=== PATIENT | male | born 1955 | race African-American/Black ===

== ENCOUNTER 2024-03-20 12:40 | Emergency (ER) | payer OTHER ==
[~2024-03-20] VITALS: Ht 170.2 cm; Wt 75.0 kg
[2024-03-20 12:42] VITALS: O2SAT 99
[2024-03-20 13:04] LABS: BASOPHILS % 0.4 % (0.0-2.0); DIFFERENTIAL COMMENT 0; EOSINOPHILS % 0.1 % (0.0-5.0); HEMATOCRIT. 46.7 % (42.0-52.0); LYMPHOCYTES % 13.7 % (20.0-50.0); MEAN CORPUSCULAR HEMOGLOBIN 24.4 pg (28.0-32.0); MEAN CORPUSCULAR HGB CONC 32.1 g/dL (31.0-37.0); MEAN CORPUSCULAR VOLUME 75.9 fL (80.0-94.0); MEAN PLATELET VOLUME 7.8 fl (7.4-10.4); MONOCYTES % 9.1 % (2.0-8.0); NEUTROPHILS % 76.7 % (40.0-76.0); PLATELET 212 x1000/uL (130-400); RED BLOOD CELL COUNT 6.15 mill/uL (4.7-6.1); RED CELL DISTRIBUTION WIDTH 14.6 % (11.6-14.6)
[2024-03-20 13:10] LABS: CHLORIDE 104 mEq/L (98-107); POTASSIUM 3.9 mEq/L (3.5-5.1); SODIUM 135 mEq/L (136-145)
[2024-03-20 13:11] LABS: CALCIUM 9.2 mg/dL (8.7-10.4); CARBON DIOXIDE 26 mEq/L (21-32)
[2024-03-20 13:16] LABS: CREATININE 0.8 mg/dL (0.6-1.3); GLUCOSE 286 mg/dL (70-105); UREA NITROGEN BLOOD 8 mg/dL (9-23)
[2024-03-20 13:18] LABS: TROPONIN I HIGH SENSITIVITY 15 ng/L (3.0-53)
[2024-03-20] MEDS ORDERED: PANTOPRAZOLE SODIUM 40 MG/VIAL IV ONE (15:30)
[2024-03-20] MEDS: SODIUM CHLORIDE 0.9% 1,000 ML IV ONE (15:30)
[2024-03-20] MEDS ORDERED: ACETAMINOPHEN 325MG TABLET PO ONE (15:30)
[2024-03-20 16:06] LABS: TROPONIN I HIGH SENSITIVITY 14 ng/L (3.0-53)
[2024-03-20] MEDS: PANTOPRAZOLE SODIUM 40 MG/VIAL IV NR (17:09)
[2024-03-20] MEDS: ACETAMINOPHEN 325MG TABLET PO NR (17:09)
[2024-03-20] MEDS ORDERED: FAMO-135 MT (19:25)
[2024-03-20 21:59] VITALS: BP 109/65; PULSE 80; RESP 17; TEMP 98.5
== END 2024-03-20 22:21 | disposition home or self-care (01) ==
LOC: ER 12:40
DX: R55 Syncope and collapse (principal); R42 Dizziness and giddiness; E11.9 Type 2 diabetes mellitus without complications; I10 Essential (primary) hypertension
CPT/HCPCS: 80048; 80320; 83880; 85025; 84484; 36415; 71045; 93005; 96361; 96374; 99285; J2470; J7030; G0480